=== PATIENT | female | born 1965 | race Caucasian/White ===

== ENCOUNTER 2023-01-07 03:51 | Outpatient (CLI) | payer OTHER, SELFPAY | END 2023-01-07 03:52 | disposition home or self-care (01) | LOC: AMB 02-12 13:30 | PROVIDERS: Visit Provider Family Medicine | DX: R55 Syncope and collapse (principal); S09.93XA Unspecified injury of face, initial encounter; W18.39XA Other fall on same level, initial encounter; Y92.002 Bathroom of unspecified non-institutional (private) residence as the place of occurrence of the external cause | CPT/HCPCS: A0425; A0427 ==

== ENCOUNTER 2023-08-08 13:45 | Outpatient (CLI) | payer OTHER, SELFPAY | END 2023-08-08 13:46 | disposition home or self-care (01) | LOC: AMB 08-12 00:03 | PROVIDERS: Visit Provider Internal Medicine | DX: R55 Syncope and collapse (principal) | CPT/HCPCS: A0425; A0427 ==

== ENCOUNTER 2023-09-19 07:23 | Outpatient (CLI) | payer OTHER, SELFPAY | END 2023-09-19 07:24 | disposition home or self-care (01) | LOC: AMB 09-22 14:23 | PROVIDERS: Visit Provider Internal Medicine | DX: R55 Syncope and collapse (principal) | CPT/HCPCS: A0425; A0427 ==